=== PATIENT | male | born 1960 | race Caucasian/White ===

== ENCOUNTER 2023-03-23 10:52 | Day surgery (SDC) | payer OTHER ==
[~2023-03-23] VITALS: Ht 180.3 cm; Wt 104.0 kg
[~2023-03-23 10:52] MED LIST: BENA-8 PO; BENA1TAB23 PO; OMEP40CA5 PO; SYNT150T PO; VERA240C PO
[2023-03-23] MEDS: NS 1,000 ML IV ONE (11:08)
[2023-03-23 12:24] VITALS: TEMP 97.6
[2023-03-23 12:49] VITALS: BP 128/76; O2SAT 96
== END 2023-03-23 13:25 | disposition home or self-care (01) ==
LOC: M OPP 10:52
PROVIDERS: ATTEND Internal Medicine Gastroenterology
DX: Z12.11 Encounter for screening for malignant neoplasm of colon (principal); K64.0 First degree hemorrhoids; K57.30 Diverticulosis of large intestine without perforation or abscess without bleeding; K22.2 Esophageal obstruction; K44.9 Diaphragmatic hernia without obstruction or gangrene; R13.10 Dysphagia, unspecified; Z79.890 Hormone replacement therapy; Z79.899 Other long term (current) drug therapy

== ENCOUNTER → 2023-07-04 | Outpatient (REF) | payer OTHER ==
[2023-07-04 14:30] LABS: CREATININE,RANDOM URINE 19.3 MG/DL
[2023-07-04 14:31] LABS: TOTAL PROTEIN,RANDOM URINE < 6.0 MG/DL (0.0-14.0)
== END ==
LOC: M LAB REF 12:23
PROVIDERS: ATTEND Internal Medicine Nephrology
DX: N17.9 Acute kidney failure, unspecified (principal)